=== PATIENT | male | born 1975 | race Caucasian/White ===

== ENCOUNTER 2021-03-12 17:33 | Inpatient (IN) | payer MEDICAID ==
[~2021-03-12] VITALS: Ht 167.6 cm; Wt 78.1 kg
[2021-03-12] MEDS ORDERED: DEXAMETHASONE 10 MG/ML VIAL IV ONE (19:45)
[2021-03-12 22:12] LABS: CHLORIDE 95 mEq/L (98-107)
[2021-03-12] MEDS ORDERED: VANCOMYCIN 1 G PREMIX 200 ML IV ONE (22:45)
[2021-03-12] MEDS ORDERED: PIPERACILLIN/TAZ 3.375G PREMIX 50 ML IV ONE (22:45)
[2021-03-12 23:35] LABS: HEMATOCRIT. 43.1 % (42.0-52.0); HEMOGLOBIN. 14.8 g/dL (14.0-18.0); MEAN CORPUSCULAR HEMOGLOBIN 31.8 pg (28.0-32.0); MEAN CORPUSCULAR VOLUME 92.9 fL (80.0-94.0); MEAN PLATELET VOLUME 13.3 fl (7.4-10.4); RED BLOOD CELL COUNT 4.64 mill/uL (4.7-6.1); RED CELL DISTRIBUTION WIDTH 15.5 % (11.6-14.6)
[2021-03-12 23:48] LABS: CLARITY URINE CLOUDY (CLEAR); COLOR URINE DARK YELLOW (YELLOW); KETONES URINE NEGATIVE (NEGATIVE); LEUKOCYTE ESTERASE URINE NEGATIVE (NEGATIVE); NITRITE URINE NEGATIVE (NEGATIVE); OCCULT BLOOD URINE NEGATIVE (NEGATIVE); PROTEIN URINE TRACE (NEGATIVE); SPECIFIC GRAVITY URINE 1.018 (1.005-1.030); UROBILINOGEN URINE 0.2 E.U./dL (0.2-1.0)
[2021-03-13 00:06] LABS: PLATELET 28 x1000/uL (130-400)
[2021-03-13] MEDS ORDERED: DIPHENHYDRAMINE 50MG/ML VIAL IV PRN (01:00)
[2021-03-13] MEDS ORDERED: ZOLPIDEM TARTRATE 5MG TABLET PO PRN (01:00)
[2021-03-13] MEDS ORDERED: ONDANSETRON HCL 4MG/2ML INJ IV PRN (01:00)
[2021-03-13] MEDS ORDERED: ACETAMINOPHEN 325MG TABLET PO PRN ×2 (01:00)
[2021-03-13] MEDS ORDERED: MAGNESIUM/ALUMINUM HYDROXIDE/SIMETHICONE 30ML UDC PO PRN (01:00)
[2021-03-13] MEDS ORDERED: CLONIDINE 0.1MG TABLET PO PRN (01:00)
[2021-03-13] MEDS ORDERED: DEXTROSE 50% WATER 50ML SYRINGE IV PRN (01:00)
[2021-03-13 01:20] LABS: BG BASE EXCESS -10.7 mmol/L (-2.0-2.0); BG CARBOXYHEMOGLOBIN 0.8 % (0.5-1.5); BG DEOXYHEMOGLOBIN 3.2 % (0.0-5.0); BG FRACTION INSPIRED OXYGEN 21; BG HCO3 ACT 13.5 mmol/L (22.0-26.0); BG METHEMOGLOBIN 0.4 % (0.0-1.5); BG OXYGEN SATURATION 96.8 % (92.0-98.5); BG OXYHEMOGLOBIN 95.6 % (94.0-97.0); BG PCO2 26.9 mmHg (35.0-45.0); BG PO2 94.1 mmHg (75.0-100.0); BG SAMPLE SITE LEFT BRACHIAL; BG TOTAL HEMOGLOBIN 15.2 g/dL (12.0-18.0); BG VENT MODE ROOM AIR
[2021-03-13] MEDS ORDERED: AZITHROMYCIN 500MG/250ML 250 ML IV NR (02:00)
[2021-03-13 05:00] LABS: HEMATOCRIT. 41.3 % (42.0-52.0); MEAN CORPUSCULAR HEMOGLOBIN 31.7 pg (28.0-32.0); MEAN CORPUSCULAR VOLUME 93.7 fL (80.0-94.0); MEAN PLATELET VOLUME 10.6 fl (7.4-10.4); RED BLOOD CELL COUNT 4.41 mill/uL (4.7-6.1); RED CELL DISTRIBUTION WIDTH 15.5 % (11.6-14.6)
[2021-03-13 05:06] LABS: CHLORIDE 93 mEq/L (98-107)
[2021-03-13 05:18] LABS: PLATELET 20 x1000/uL (130-400)
[2021-03-13 05:34] LABS: ATYPICAL LYMPHOCYTES 2; NUCLEATED RED BLOOD CELLS 1 /100 WBC
[2021-03-13 05:35] LABS: PLATELET ESTIMATE DECREASED
[2021-03-13] MEDS: SODIUM CHLORIDE 0.9% 1,000 ML IV SCH ×2 (06:28→09:26)
[2021-03-13] MEDS: SODIUM CHLORIDE 0.9% INJ 3ML FLUSH IVF SCH ×3 (06:29→21:44)
[2021-03-13 07:02] LABS: NUCLEATED RED BLOOD CELLS 1 /100 WBC; PLATELET ESTIMATE DECREASED
[2021-03-13] MEDS ORDERED: CEFTRIAXONE 1 G PREMIX 50 ML IV SCH (08:00)
[2021-03-13] MEDS: INSULIN LISPRO 100 UNITS/ML SUBCUT SCH ×4 (08:15→20:54)
[2021-03-13 09:00] VITALS: BP 106/69
[2021-03-13] MEDS ORDERED: ERGOCALCIFEROL 50000UNITS CAPSULE PO SCH (09:00)
[2021-03-13] MEDS: BLOOD SUGAR DIAGNOSTIC STRIP TEST SCH ×4 (09:00→21:00)
[2021-03-13] MEDS: DEXAMETHASONE 4MG/ML 1ML VIAL IV SCH (09:25)
[2021-03-13] MEDS ORDERED: SODIUM CHLORIDE 0.9% 1000ML BAG (SEPSIS BOLUS) IV ONE (09:40)
[2021-03-13] MEDS: CITRIC ACID/SODIUM CITRATE SOLN 30ML UDC PO SCH ×3 (10:42→17:00)
[2021-03-13 11:20] VITALS: BP 105/78
[2021-03-13] MEDS ORDERED: LORAZEPAM 2MG/ML CPJ IV PRN (12:30)
[2021-03-13 14:38] LABS: BG BASE EXCESS -9.5 mmol/L (-2.0-2.0); BG CARBOXYHEMOGLOBIN 1.2 % (0.5-1.5); BG DEOXYHEMOGLOBIN 6.7 % (0.0-5.0); BG FRACTION INSPIRED OXYGEN 36; BG HCO3 ACT 13.5 mmol/L (22.0-26.0); BG METHEMOGLOBIN 0.3 % (0.0-1.5); BG OXYGEN SATURATION 93.2 % (92.0-98.5); BG OXYHEMOGLOBIN 91.8 % (94.0-97.0); BG PCO2 23.7 mmHg (35.0-45.0); BG PH 7.373 (7.350-7.450); BG PO2 70.9 mmHg (75.0-100.0); BG SAMPLE SITE RIGHT BRACHIAL; BG TOTAL HEMOGLOBIN 15.4 g/dL (12.0-18.0); BG VENT MODE NASAL CANNULA
[2021-03-13] MEDS ORDERED: METF-416 PO (14:56)
[2021-03-13 16:00] VITALS: BP 137/100
[2021-03-13 16:00] LABS: VITAMIN B12 SERUM > 2000.0 pg/mL (211-911)
[2021-03-13] MEDS ORDERED: DOXYCYCLINE HYCLATE 100MG CAPSULE PO SCH (16:00)
[2021-03-13] MEDS: MEROPENEM 1,000 MG in SODIUM CHLORIDE 0.9% 100 ML IV SCH ×2 (16:37→22:17)
[2021-03-13] MEDS ORDERED: FOLIC ACID 1 MG, THIAMINE HCL 100 MG, MVI, ADULT NO.1 10 ML in DEXTROSE 5% WATER 1,000 ML IV NR (18:30)
[2021-03-13] MEDS: LORAZEPAM 2MG/ML CPJ IV PRN ×2 (18:43→23:30)
[2021-03-13 20:00] VITALS: BP 149/69
[2021-03-13] MEDS ORDERED: SODIUM BICARBONATE 50 MEQ in SODIUM CHLORIDE 0.45% 1,000 ML IV SCH (20:00)
[2021-03-13] MEDS ORDERED: FAMOTIDINE 20MG TABLET PO SCH (21:00)
[2021-03-13] MEDS ORDERED: ACETAMINOPHEN 650MG SUPP PR PRN (21:15)
[2021-03-13 22:00] VITALS: BP 150/82
[2021-03-14] VITALS (56 sets, daily range): BP systolic 51–170; BP diastolic 15–105
[2021-03-14] MEDS ORDERED: DOPAMINE 800MG PREMIX (DOUBLE) 250 ML IV PRN (05:15)
[2021-03-14] MEDS: PHENYLEPHRINE 100 MG in DEXT 5% WATER 240 ML IV PRN ×2 (05:31→11:39)
[2021-03-14] MEDS ORDERED: FENTANYL CITRATE/PF 2,500 MCG in SODIUM CHLORIDE 0.9% 200 ML IV PRN (05:45)
[2021-03-14] MEDS ORDERED: MIDAZOLAM HCL 100 MG in SODIUM CHLORIDE 0.9% 80 ML IV PRN (05:45)
[2021-03-14] MEDS ORDERED: SODIUM CHLORIDE 0.9% 500 ML IV NR (06:00)
[2021-03-14 06:13] LABS: EOSINOPHILS % 2.6 % (0.0-5.0); HEMOGLOBIN. 12.3 g/dL (14.0-18.0); LYMPHOCYTES % 13.2 % (20.0-50.0); MEAN CORPUSCULAR HEMOGLOBIN 32.2 pg (28.0-32.0); MEAN CORPUSCULAR VOLUME 99.8 fL (80.0-94.0); MEAN PLATELET VOLUME 12.1 fl (7.4-10.4); MONOCYTES % 4.5 % (2.0-8.0); NEUTROPHILS % 78.7 % (40.0-76.0); RED CELL DISTRIBUTION WIDTH 16.8 % (11.6-14.6)
[2021-03-14] MEDS: NOREPINEPHRINE 32 MG in DEXT 5% WATER 218 ML IV PRN ×2 (06:15→11:40)
[2021-03-14] MEDS: SODIUM CHLORIDE 0.9% 500 ML IV SCH ×2 (06:15→07:13)
[2021-03-14 06:25] LABS: PARTIAL THROMBOPLASTIN TIME 55.4 sec (23.4-31.0); PROTHROMBIN TIME 20.3 sec (9.6-11.0)
[2021-03-14] MEDS: BLOOD SUGAR DIAGNOSTIC STRIP TEST SCH ×2 (06:30→11:30)
[2021-03-14] MEDS: MEROPENEM 1,000 MG in SODIUM CHLORIDE 0.9% 100 ML IV SCH ×2 (06:30→13:46)
[2021-03-14 06:33] LABS: CHLORIDE 104 mEq/L (98-107)
[2021-03-14 06:41] LABS: BG BASE EXCESS -28.1 mmol/L (-2.0-2.0); BG CARBOXYHEMOGLOBIN 0.3 % (0.5-1.5); BG DEOXYHEMOGLOBIN 24.9 % (0.0-5.0); BG FRACTION INSPIRED OXYGEN 100; BG HCO3 ACT 7.2 mmol/L (22.0-26.0); BG METHEMOGLOBIN 0.6 % (0.0-1.5); BG OXYGEN SATURATION 74.9 % (92.0-98.5); BG OXYHEMOGLOBIN 74.2 % (94.0-97.0); BG PCO2 54.1 mmHg (35.0-45.0); BG PH 6.742 (7.350-7.450); BG PO2 72.2 mmHg (75.0-100.0); BG SAMPLE SITE RIGHT FEMORAL; BG TOTAL HEMOGLOBIN 11.5 g/dL (12.0-18.0); BG TOTAL RESPIRATORY RATE 23 b/min; BG VENT MODE VENT - AC
[2021-03-14 06:45] LABS: PHOSPHORUS 6.4 mg/dL (2.5-4.9)
[2021-03-14] MEDS ORDERED: SODIUM BICARBONATE 8.4% 1 MEQ/ML 50ML SYR IV SCH (07:00)
[2021-03-14] MEDS: INSULIN LISPRO 100 UNITS/ML SUBCUT SCH ×2 (07:00→12:00)
[2021-03-14] MEDS ORDERED: VASOPRESSIN 20 UNIT in SODIUM CHLORIDE 0.9% 99 ML IV PRN (07:00)
[2021-03-14 07:20] LABS: PLATELET 31 x1000/uL (130-400)
[2021-03-14] MEDS ORDERED: SODIUM BICARBONATE 150 MEQ in DEXTROSE 5% WATER 1,000 ML IV SCH (08:00)
[2021-03-14] MEDS ORDERED: PANTOPRAZOLE SODIUM 40 MG/VIAL IV SCH ×2 (09:00→21:00)
[2021-03-14] MEDS ORDERED: AZITHROMYCIN 500 MG in DEXT 5% WATER 250 ML IV SCH (09:00)
[2021-03-14] MEDS: CITRIC ACID/SODIUM CITRATE SOLN 30ML UDC PO SCH ×2 (09:00→13:00)
[2021-03-14] MEDS ORDERED: SUCCINYLCHOLINE CHLORIDE 200MG/10ML IV ONE (09:38)
[2021-03-14] MEDS ORDERED: ETOMIDATE 2MG/ML 10ML VIAL IV ONE (09:38)
[2021-03-14] MEDS: DEXAMETHASONE 4MG/ML 1ML VIAL IV SCH (10:10)
[2021-03-14 10:36] LABS: BG BASE EXCESS -26.1 mmol/L (-2.0-2.0); BG CARBOXYHEMOGLOBIN 0.2 % (0.5-1.5); BG DEOXYHEMOGLOBIN 8.1 % (0.0-5.0); BG FRACTION INSPIRED OXYGEN 100; BG HCO3 ACT 5.3 mmol/L (22.0-26.0); BG METHEMOGLOBIN 0.8 % (0.0-1.5); BG OXYGEN SATURATION 91.8 % (92.0-98.5); BG OXYHEMOGLOBIN 90.9 % (94.0-97.0); BG PCO2 26.7 mmHg (35.0-45.0); BG PH 6.913 (7.350-7.450); BG SAMPLE SITE RIGHT BRACHIAL; BG TOTAL HEMOGLOBIN 10.8 g/dL (12.0-18.0); BG VENT MODE VENT - AC
[2021-03-14 10:56] LABS: CORTISOL 18.4 ucg/dL
[2021-03-14] MEDS ORDERED: EPINEPHRINE 10 MG in SODIUM CHLORIDE 0.9% 240 ML IV PRN (11:00)
[2021-03-14 11:07] LABS: HEPATITIS B SURFACE ANTIGEN NEGATIVE
[2021-03-14] MEDS ORDERED: DEXT 5%/0.45% NACL 1000ML 1,000 ML IV ONE (13:30)
[2021-03-14] MEDS ORDERED: HYDROCORTISONE SOD SUCCINATE 100 MG/2 ML VIAL IV SCH (14:00)
[2021-03-14] MEDS ORDERED: PHYTONADIONE 10MG/ML AMP SUBCUT NR (14:30)
[2021-03-14] MEDS ORDERED: LEVETIRACETAM 500MG PREMIX 100 ML IV SCH (15:00)
[2021-03-14] MEDS ORDERED: OCTREOTIDE 1,000 MCG in SODIUM CHLORIDE 0.9% 98 ML IV SCH (15:30)
[2021-03-15] MEDS ORDERED: MEROPENEM 1000MG in NORMAL SALINE 100ML IV SCH
== END 2021-03-14 17:50 | DRG 720 ==
LOC: ER 17:33 → 7WST 21:01 → EDBEDREQ 21:28 → EDBEDREQTM 21:28 → EDBEDREQSVC 21:28 → ENRESERV 03-13 07:40 → 5EST 03-13 14:05 → MICUSO 03-14 05:27
PROVIDERS: ADMIT Internal Medicine; ATTEND Internal Medicine
PROC: 5A12012 Performance of Cardiac Output, Single, Manual (ICD-10-PCS; principal; 2021-03-14)
PROC: 5A1935Z Respiratory Ventilation, Less than 24 Consecutive Hours (ICD-10-PCS; 2021-03-14)
PROC: 06HY33Z Insertion of Infusion Device into Lower Vein, Percutaneous Approach (ICD-10-PCS; 2021-03-14)
PROC: B54BZZA Ultrasonography of Right Lower Extremity Veins, Guidance (ICD-10-PCS; 2021-03-14)
PROC: 0BH17EZ Insertion of Endotracheal Airway into Trachea, Via Natural or Artificial Opening (ICD-10-PCS; 2021-03-14)
DX: A41.9 Sepsis, unspecified organism (principal); N17.0 Acute kidney failure with tubular necrosis; G92.8 Other toxic encephalopathy; E43 Unspecified severe protein-calorie malnutrition; F10.131 Alcohol abuse with withdrawal delirium; J18.9 Pneumonia, unspecified organism; D68.9 Coagulation defect, unspecified; D69.6 Thrombocytopenia, unspecified; E87.1 Hypo-osmolality and hyponatremia; E86.1 Hypovolemia; I10 Essential (primary) hypertension; Z20.822 Contact with and (suspected) exposure to COVID-19; E11.9 Type 2 diabetes mellitus without complications; Y90.9 Presence of alcohol in blood, level not specified; R17 Unspecified jaundice; D53.9 Nutritional anemia, unspecified; R74.01 Elevation of levels of liver transaminase levels; I46.9 Cardiac arrest, cause unspecified; Z66 Do not resuscitate; R65.20 Severe sepsis without septic shock; G40.509 Epileptic seizures related to external causes, not intractable, without status epilepticus; K92.0 Hematemesis; Z82.49 Family history of ischemic heart disease and other diseases of the circulatory system; Z83.3 Family history of diabetes mellitus; Z68.27 Body mass index [BMI] 27.0-27.9, adult
CPT/HCPCS: 36415; 36600; 71045; 71250; 74176; 76700; 80048; 80053; 80320; 81003; 82140; 82375; 82533; 82607; 82805; 82962; 83605; 83735; 83935; 84100; 84145; 84443; 84484; 85025; 85384; 86705; 86709; 86803; 87070; 87340; 87426; 87804; 92950; 93005; 94002; 99291; C9113; J0330; J0456; J0696; J1100; J1200; J1265; J1720; J1815; J1953; J2060; J2185; J2354; J2370; J2543; J3010; J3370; J3411; J3490; J7040; J7050; J7060; J7070; U0003; U0005; A4315; G0480